=== PATIENT | male | born 1945 | race African-American/Black ===

== ENCOUNTER 2016-07-30 08:39 | Inpatient (IN) | payer BC ==
--- NOTE | ~2016-07-30 | HP ---
History And Physical [place] [id number] [facility] [place]. [address] NAME: DURAN MULTANI : 45 STATUS : ADM IN [facility]#: [id number] AGE: 71 ADM/REG DATE : 07/30/16 MR#: [id number] REPORT SERV DATE: 07/30/16 DICTATED BY: EVELIN TAI DATE: 07/30/16 REPORT STATUS : Draft TRANSCRIBED BY: MODLaura DATE: 07/30/16 DATE OF ADMISSION: 07/30/2016 REASON FOR ADMISSION: Pneumonia, left lower lobe. HISTORY OF PRESENT ILLNESS: This is a 71-year-old black male who has history of vascular dementia. It came on abruptly in 2004 with a stroke, though he had some decline prior to that time. He does have some residual hemiparesis according to his , but he takes care of his own activities of daily living. For the last three days, he has been having increasing lethargy, sleeping more during the day, and not eating as well. He developed some fever and chills. He was hot to her touch. He was brought to the emergency room, where Dr. Mcdowell examined him and found evidence of a left perihilar infiltrate. He was started on Levaquin. PAST MEDICAL HISTORY: He was hospitalized about two years ago with similar problems. He has had hypertension severe dementia and is basically nonverbal, but he does seem to understand. He had a stroke with some right-sided hemiparesis in the past, hyperlipidemia, and diverticulosis. He had a tonsillectomy, appendectomy, and a lesion on his neck removed. FAMILY HISTORY: His father lived to be 92 and two years ago. There is some high blood pressure and diabetes that run in the family. He was an only child. SOCIAL HISTORY: He worked for [employer] and was exposed to a chemical at [employer] that is associated with dementia. does not know what that chemical is. He and his have been for 52 years. They lived in [place], but were at the [facility] in [facility]. He lives at home with his and goes out to the mailbox still and brings her the newspaper. They have four children together and now great grandchildren. REVIEW OF SYSTEMS: Unobtainable from the patient as he is nonverbal. says that he has had no nausea, vomiting, or diarrhea. No hematuria. No melena. His cough sputum has not been examined by her. ALLERGIES: NONE ARE KNOWN. HOME MEDICATIONS: Prescribed by Dr. Davie Gross: Hydrochlorothiazide 25 mg p.o. daily, Xyzal 5 mg p.o. at bedtime, lisinopril 40 mg p.o. daily, simvastatin 40 mg p.o. at bedtime. PHYSICAL EXAMINATION: GENERAL: Black male, looking younger than stated age, no acute distress. Distressed look on face. VITAL SIGNS: His temperature on arrival was 37.06 or 98.7 degrees Fahrenheit, blood pressure 133/69 with a heart rate of 83, respiratory rate 19, and oxygen saturation 93% on room air initially. Arterial blood gas was obtained by Dr. Mcdowell that did show PaO2 of 55. History And Physical [address] [address] NAME: DURAN MULTANI : 45 STATUS : ADM IN [facility]#: [id number] AGE: 71 ADM/REG DATE : 07/30/16 MR#: [id number] REPORT SERV DATE: 07/30/16 DICTATED BY: EVELIN TAI DATE: 07/30/16 REPORT STATUS : Draft TRANSCRIBED BY: MISSY DATE: 07/30/16 HEENT: EOMI. Sclerae clear. Conjunctivae pink. NECK: No bruit. No JVD. CHEST: Clear bilaterally. HEART: Regular. S1, S2 without murmur, gallop, or click. ABDOMEN: Soft and nontender. Bowel sounds positive. EXTREMITIES: Have no edema. Distal pulses are palpable, dorsalis pedis and posterior tibial. NEUROLOGIC: He withdraws to plantar stimulation. His dye worker is equal and symmetric bilaterally. Coordination intact. He has no tremor. He is symmetric and equal neurologically bilaterally. He does twiddle his thumbs symmetrically. Examination of motor and sensory is limited because of patient's lack of speech. His weakness probably in the right leg greater than the left, though not perceptible in the supine position. LABORATORY DATA: White count was 9.9, hemoglobin 13.9, hematocrit 41.8, platelets were 269,000. The BNP was 104.7. Sodium 143, potassium 3.4, glucose 99, creatinine 1.3, BUN 18. His INR is 1.1. Troponin less than 0.02. Arterial blood gas, 7.47, 36, 55 with oxygen saturation 90.9. Chest x-ray shows possible left hilar infiltrate. ASSESSMENT: 1. Fever and chills, change in functional status suspicious for infectious cause. 2. Pneumonia, left hilum. Probably, we will repeat the chest x-ray PA and lateral in the morning. 3. Hypoxemia. He has refused oxygen in the past. His PaO2 of 55 and normal oxygen saturation of 90-93 does not make him a candidate for oxygen therapy, therefore we will try ambulating and see if he becomes a candidate, however, his now tells me that she will not receive oxygen at home as he has refused to wear it in the past. 4. Abnormal EKG, left axis deviation. 5. Abnormal chest x-ray. We will repeat in the morning. 6. History of hypertension. 7. History of stroke. 8. Multi-infarct dementia with functional status intact for activities of daily living, though is mute because of previous language center having disrupted. PLAN: 1. I am going to go ahead with p.o. Levaquin as he has already gotten IV dose. He remains afebrile with white count normal. Repeat chest x-ray in the morning. We will ambulate and check the oxygen saturation. 2. History of hyperlipidemia, on simvastatin. DB/MODL Evelin Tai M.D. History And Physical [address] [address] NAME: DURAN MULTANI : 45 STATUS : ADM IN [facility]#: [id number] AGE: 71 ADM/REG DATE : 07/30/16 MR#: [id number] REPORT SERV DATE: 07/30/16 DICTATED BY: EVELIN TAI DATE: 07/30/16 REPORT STATUS : Draft TRANSCRIBED BY: MODL DATE: 07/30/16 / [id number] CC: Lyla Gaspar, M.D.
--- NOTE | ~2016-07-30 | DS ---
Discharge Summary [facility] [address] [place]. [address] NAME: YOHANNES MULTANI : 45 STATUS : DIS IN PAT#: [id number] AGE: 71 ADM/REG DATE : 07/30/16 MR#: [id number] REPORT SERV DATE: 08/01/16 DICTATED BY: KATE COCHRAN DATE: 08/01/16 REPORT STATUS : Draft TRANSCRIBED BY: MODLaura DATE: 08/01/16 ADMISSION DATE: 07/30/2016 DISCHARGE DATE: 08/01/2016 CONDITION ON DISCHARGE: Stable. DISPOSITION: Discharged to home. The patient states that he has home oxygen with him if need be, but he does not use it for various reasons. Please see H and P. is with the patient and she is his primary caregiver and she is in agreement too. Anyhow, the patient is not requiring any supplemental oxygen at this time on the day of discharge, and his sats are fine on room air while at rest. DIAGNOSIS ON DISCHARGE: 1. Left lower lobe pneumonia - resolving. The patient has received three days of Levaquin 750 mg by mouth and is improving. He will complete a total of seven day course of p.o. Levaquin for this. 2. Old cerebrovascular accident that left the patient completely aphasic. The patient does have expressive aphasia but does understand everything. The patient also has minimal motor deficits from previous stroke. He is pretty much independent with his activities of daily living according to his . He requires little help with any ADLs. However, is there with him to help him if need be. 3. Code status is DNR. Other diagnoses that are stable in this patient include hypertension, hyperlipidemia, chronic kidney disease, stage 2 with a baseline creatinine of about 1.2 to 1.3. However, at this time, I would continue the LUCRECIA inhibitor as I am sure primary care physician is aware of this and will make necessary adjustments based on his creatinine that could be repeated in the next few weeks. The patient is advised to follow up with PCP in the next one to two weeks. BRIEF HOSPITAL COURSE: Mr. Yohannes Orr is a pleasant 71-year-old male, who was admitted with staggering, difficulty walking, weakness, and more short of breath than usual. Chest x-ray showed a left lower lobe infiltrate on the day of admission, and hence, he was admitted for supplemental oxygen and antibiotic therapy. The patient's condition significantly improved and on 08/01/2016 patient requests to go home. Hence, he is being discharged home in stable condition with advice to take four more days of Levaquin 750 mg once a day and a prescription for this has been written. The patient will resume his home medications which include HCTZ 25 mg once a day, lisinopril 40 mg once a day, levocetirizine 5 mg once a day, simvastatin 40 mg once a day. The most recent labs that I have on this patient include the following: On the day of discharge, his sodium is 140, potassium is 4.2, BUN is 26, creatinine is 1.4. WBC count is 12.5, hemoglobin 14.1, hematocrit 42.1. His troponin I is less than 0.02, and his BNP is 104.7. I have spent about 35-40 minutes in coordinating discharge care of this patient on the day Discharge Summary [address] [address] NAME: YOHANNES MULTANI : 45 STATUS : DIS IN PAT#: [id number] AGE: 71 ADM/REG DATE : 07/30/16 MR#: [id number] REPORT SERV DATE: 08/01/16 DICTATED BY: KATE COCHRAN DATE: 08/01/16 REPORT STATUS : Draft TRANSCRIBED BY: MISSY DATE: 08/01/16 of discharge, and he is advised to follow up with PCP in the next one or two weeks. DICTATED BY: Lyla Moulton/MISSY Kate Cochran M.D. / [id number] CC: Lyla Moulton M.D.
[2016-07-30 08:11] LABS: ALLENS TEST Pos; BE (BASE EXCESS) 2.5 MEQ/L (0 +/- 2.5); HCO3 (ACTUAL BICARBONATE) 25.9 MEQ/L (23-27); INSTRUMENT SERIAL # 8087; PCO2 (CO2 TENSION) 36 MMHG (35-45); PO2 (O2 TENSION) 55 MMHG (79-93); SAMPLE Arterial; pH 7.47 (7.37-7.43)
[2016-07-30 08:30] LABS: BASOPHILS 0.2 %; BASOPHILS ABSOLUTE 0.02 10/3/uL (0.0-0.16); EOSINOPHILS 1.3 %; EOSINOPHILS ABSOLUTE 0.13 10/3/uL (0.0-0.53); ER CBC TAT 0 Hrs 05 Mins; HEMATOCRIT 41.8 % (40.0-51.0); HEMOGLOBIN 13.9 g/dL (13.6-17.8); IMMATURE GRANULOCYTES 0.2 %; IMMATURE GRANULOCYTES ABSOLUTE 0.02 10/3/uL (0.0-0.11); LYMPHOCYTES 21.2 %; MANUAL DIFF NO %; MEAN CORPUS HGB CONC 33.3 g/dL (32.0-36.0); MEAN CORPUSCULAR HEMOGLOB 30.2 pg (26.0-34.0); MEAN CORPUSCULAR VOLUME 90.7 fL (80-100); MONOCYTES 7.6 %; MONOCYTES ABSOLUTE 0.75 10/3/uL (0.21-1.20); NEUTROPHILS 69.5 %; NEUTROPHILS ABSOLUTE 6.87 10/3/uL (2.02-8.40); PLATELET COUNT 269 10/3/uL (150-400); RBC DISTRIBUTION WIDTH 14.4 % (12.0-16.0); RED CELL COUNT 4.61 10/6/uL (4.7-6.1); WHITE BLOOD CELLS 9.9 10/3/uL (4.5-10.5)
[2016-07-30 08:36] LABS: INTERNATIONAL NORMAL RATI 1.1 UNITS (-); PARTIAL THROMBO TIME 25.8 SEC (22.5-37.2); PROTIME (NOT ORD) 14.2 SEC (12.0-14.5)
[~2016-07-30 08:39] MED LIST: ASAB PO; BP MEDICATION PO; HCTZ25B PO; LEVAQUIN750 MG PO; P20 PO; PRIN20 PO; PROVHFA INH; TRANDAT100 PO; [UNRECOGNIZED DRUG - REMARK]
[2016-07-30 08:49] LABS: CHEST PAIN PROFILE TAT 0 Hrs 24 Mins; CHLORIDE, SERUM 108 MMOL/L (96-112); CO2 (CARBON DIOXIDE) 28 MMOL/L (24-34); CREATININE 1.37 MG/DL (0.70-1.30); GFR AFRICAN AMERICAN 60 ML/MIN (>=60); GFR NON AFRICAN AMERICAN 52 ML/MIN (>=60); GLUCOSE, SERUM 99 MG/DL (60-99); POTASSIUM, SERUM 3.4 MMOL/L (3.5-5.3); SODIUM, SERUM 143 MMOL/L (135-148); TROPONIN I <0.02 NG/ML (<0.05)
[2016-07-30 08:51] LABS: BUN (BLOOD UREA NITROGEN) 18 MG/DL (6-23); CALCIUM, SERUM 10.4 MG/DL (8.5-10.4)
[2016-07-30] MEDS ORDERED: HYDROCHLOROT25 MG PO (09:20)
[2016-07-30] MEDS ORDERED: ZOCOR40 PO (09:20)
[2016-07-30] MEDS ORDERED: ZESTRIL40 MG PO (09:21)
[2016-07-30] MEDS ORDERED: XYZAL5 MG PO (09:21)
[2016-07-31 07:09] LABS: BASOPHILS 0.1 %; BASOPHILS ABSOLUTE 0.01 10/3/uL (0.0-0.16); EOSINOPHILS 0 %; HEMATOCRIT 41.6 % (40.0-51.0); HEMOGLOBIN 13.8 g/dL (13.6-17.8); IMMATURE GRANULOCYTES 0.2 %; IMMATURE GRANULOCYTES ABSOLUTE 0.03 10/3/uL (0.0-0.11); LYMPHOCYTES 17.8 %; MANUAL DIFF NO %; MEAN CORPUS HGB CONC 33.2 g/dL (32.0-36.0); MEAN CORPUSCULAR HEMOGLOB 29.8 pg (26.0-34.0); MEAN CORPUSCULAR VOLUME 89.8 fL (80-100); MEAN PLATELET VOLUME 9.5 fL (9.2-13.0); MONOCYTES 7.3 %; MONOCYTES ABSOLUTE 0.98 10/3/uL (0.21-1.20); NEUTROPHILS 74.6 %; NEUTROPHILS ABSOLUTE 10.07 10/3/uL (2.02-8.40); PLATELET COUNT 288 10/3/uL (150-400); RBC DISTRIBUTION WIDTH 14.3 % (12.0-16.0); RED CELL COUNT 4.63 10/6/uL (4.7-6.1); WHITE BLOOD CELLS 13.5 10/3/uL (4.5-10.5)
[2016-07-31 07:25] LABS: CALCIUM, SERUM 10.6 MG/DL (8.5-10.4); CHLORIDE, SERUM 109 MMOL/L (96-112); CREATININE 1.42 MG/DL (0.70-1.30); GFR AFRICAN AMERICAN 57 ML/MIN (>=60); GFR NON AFRICAN AMERICAN 49 ML/MIN (>=60); GLUCOSE, SERUM 116 MG/DL (60-99); SODIUM, SERUM 141 MMOL/L (135-148)
[2016-07-31 07:28] LABS: BUN (BLOOD UREA NITROGEN) 22 MG/DL (6-23); CO2 (CARBON DIOXIDE) 23 MMOL/L (24-34); POTASSIUM, SERUM 4.2 MMOL/L (3.5-5.3)
[2016-08-01 06:12] LABS: BASOPHILS 0.2 %; BASOPHILS ABSOLUTE 0.02 10/3/uL (0.0-0.16); EOSINOPHILS 0.3 %; EOSINOPHILS ABSOLUTE 0.04 10/3/uL (0.0-0.53); HEMATOCRIT 42.1 % (40.0-51.0); HEMOGLOBIN 14.1 g/dL (13.6-17.8); IMMATURE GRANULOCYTES 0.2 %; IMMATURE GRANULOCYTES ABSOLUTE 0.02 10/3/uL (0.0-0.11); LYMPHOCYTES 19.3 %; LYMPHOCYTES ABSOLUTE 2.42 10/3/uL (0.67-4.30); MEAN CORPUS HGB CONC 33.5 g/dL (32.0-36.0); MEAN CORPUSCULAR HEMOGLOB 30.3 pg (26.0-34.0); MEAN CORPUSCULAR VOLUME 90.3 fL (80-100); MEAN PLATELET VOLUME 9.5 fL (9.2-13.0); MONOCYTES 6.4 %; NEUTROPHILS 73.6 %; NEUTROPHILS ABSOLUTE 9.24 10/3/uL (2.02-8.40); PLATELET COUNT 283 10/3/uL (150-400); RBC DISTRIBUTION WIDTH 14.4 % (12.0-16.0); RED CELL COUNT 4.66 10/6/uL (4.7-6.1); WHITE BLOOD CELLS 12.5 10/3/uL (4.5-10.5)
[2016-08-01 06:15] LABS: MANUAL DIFF NO %
[2016-08-01 06:24] LABS: BUN (BLOOD UREA NITROGEN) 26 MG/DL (6-23); CALCIUM, SERUM 10.2 MG/DL (8.5-10.4); CHLORIDE, SERUM 107 MMOL/L (96-112); CO2 (CARBON DIOXIDE) 27 MMOL/L (24-34); GFR AFRICAN AMERICAN 58 ML/MIN (>=60); GFR NON AFRICAN AMERICAN 50 ML/MIN (>=60); GLUCOSE, SERUM 96 MG/DL (60-99); POTASSIUM, SERUM 4.2 MMOL/L (3.5-5.3); SODIUM, SERUM 140 MMOL/L (135-148)
[2016-08-01] MEDS ORDERED: LEVAQUIN750 MG PO (11:04)
[2016-08-29] MEDS ORDERED: ASABAYER PO (09:51)
[2016-09-02] MEDS ORDERED: TRANDAT100 PO (07:01)
[2016-09-02] MEDS ORDERED: MOBIC7.5 PO (07:02)
[2016-09-23] MEDS ORDERED: ZOFRAN8 PO (16:58)
[2016-11-07] MEDS ORDERED: LEVAQUIN750 MG PO (08:45)
[2016-11-07] MEDS ORDERED: NYS500UDL PO (08:51)
== END 2016-08-01 12:41 | disposition home or self-care (01) | DRG 194 ==
LOC: ER 08:39 → 5SO 12:12 → ER/OF 12:36 → 7NO 15:12
PROVIDERS: Emergency Medicine; Internal Medicine
DX: J18.9 Pneumonia, unspecified organism (principal); I69.351 Hemiplegia and hemiparesis following cerebral infarction affecting right dominant side; F01.50 Vascular dementia, unspecified severity, without behavioral disturbance, psychotic disturbance, mood disturbance, and anxiety; I69.919 Unspecified symptoms and signs involving cognitive functions following unspecified cerebrovascular disease; I10 Essential (primary) hypertension; I69.320 Aphasia following cerebral infarction; R26.2 Difficulty in walking, not elsewhere classified; R09.02 Hypoxemia; I25.10 Atherosclerotic heart disease of native coronary artery without angina pectoris
CPT/HCPCS: 36600; 71010; 80048; 82805; 83735; 83880; 84132; 84484; 85025; 85610; 85730; 87040; 87150; 93005; 94640; 96374; 99285; A9270-GY; G0378; J2930